=== PATIENT | male | born 1950 | race Caucasian/White ===

== ENCOUNTER 2021-04-11 11:12 | Emergency (ER) | payer MEDICARE, OTHER ==
[~2021-04-11 11:12] MED LIST: IBUPROFEN800 MG PO; NORCO 5-325 TA1 EACH PO
[2021-04-11 13:34] LABS: INFLUENZA A NAA NEGATIVE (NEGATIVE)
[2021-04-11 13:38] LABS: CORONAVIRUS 2019 SARS-COV-2 POSITIVE (NEGATIVE)
[2021-04-11] MEDS ORDERED: MEDROL 4MG DOSEP4 MG PO (14:14)
[2021-04-11] MEDS ORDERED: VENTOLIN HFA IN18 GM INH (14:14)
== END 2021-04-11 14:14 | disposition home or self-care (01) ==
LOC: FER 11:12
PROVIDERS: Emergency Medicine
DX: U07.1 COVID-19 (principal); I25.2 Old myocardial infarction
CPT/HCPCS: 71045; U0002